=== PATIENT | female | born 1985 | race Hispanic/Latino ===

== ENCOUNTER 2021-10-08 17:12 | Inpatient (IN) | payer SELFPAY ==
[~2021-10-08 17:12] MED LIST: Iopamidol-370 76% 500 ML 1 ML ONE
[2021-10-08] MEDS ORDERED: Ondansetron PF 4 MG/2 ML Vial ONE (17:50)
[2021-10-08] MEDS ORDERED: Morphine 4 MG/ML VIAL ONE (17:52)
[2021-10-08 18:21] LABS: #Monocytes 1.3 thou/uL (0.11-0.59); #Neutrophils 10.1 thou/uL (1.40-6.50); %Basophils 0.3 % (0.0-1.0); %Lymphocytes 7.9 % (21.0-51.0); %Monocytes 10.6 % (0.0-10.0); %Neutrophils 81.2 % (42.0-75.0); Mean Corpuscular HGB CONC 33.5 g/dL (32.0-36.0); Mean Corpuscular Hemoglobin 28.7 pg (27.0-31.0); Mean Corpuscular Volume 85.4 fL (78.0-98.0); Mean Platelet Volume 8.7 fL (7.4-10.4); Platelet Count 147 thou/uL (130-400); RBC Distribution Width 13.7 % (11.5-14.5); Red Blood Cell (RBC) Count 4.54 mill/uL (4.20-5.40); White Blood Cell (WBC) Count 12.4 thou/uL (4.8-10.8)
[2021-10-08 18:30] LABS: BHCG - Serum Negative (NEGATIVE)
[2021-10-08 18:31] LABS: Pregs Control Background? CLEAR/WHITE (CLR/WHITE); Pregs Control Bar Appear? YES (CONTROL BAR)
[2021-10-08 18:45] LABS: ALT (SGPT) 28 U/L (8-55); AST (SGOT) 20 U/L (5-34); Albumin 3.4 g/dL (3.5-5.0); Alkaline Phosphatase 76 U/L (40-110); Anion Gap 12 mmol/L (10-20); BUN (Urea Nitrogen) 8 mg/dL (7.0-18.7); Calc. Creatinine Clearance 0 mL/min (70-130); Calcium 8.4 mg/dL (7.8-10.44); Carbon Dioxide 27 mmol/L (22-29); Chloride 99 mmol/L (98-107); Globulin 3.8 g/dL (2.4-3.5); Glucose 123 mg/dL (70-105); Protein, Total 7.2 g/dL (6.0-8.3); Sodium 135 mmol/L (136-145)
[2021-10-08] MEDS ORDERED: Acetaminophen 500 MG TAB ONE (18:45)
[2021-10-08 19:01] LABS: SARS-CoV-2 NAA Rapid Test Not Detected (NotDetected)
[2021-10-08 19:03] LABS: Potassium 2.7 mmol/L (3.5-5.1)
[2021-10-08] MEDS ORDERED: Ketorolac Tromethamine 30 MG/ML VIAL ONE (19:52)
[2021-10-08] MEDS ORDERED: cefTRIAXone\\ROCEPHIN 2 GM VIAL ONE (19:52)
[2021-10-08] MEDS ORDERED: Potassium Chloride 20 MEQ TAB ONE (19:52)
[2021-10-08 19:57] LABS: Bilirubin Negative (Negative); Blood, Urine 2+ (Negative); Clarity Turbid (Clear); Glucose, Urine (Dipstick) Normal (Negative); Ketone, Urine Negative (Negative); Leukocyte 500 Leu/uL (Negative); Nitrite Negative (Negative); Protein, Urine (Dipstick) 20 mg/dL (Neg-Trace); Specific Gravity, Urine 1.024 (1.002-1.036); Urobilinogen Normal mg/dL (Less than 2); WBC/HPF Greater than 50 HPF (0-3); pH, Urine 6.5 (5.0-9.0)
[2021-10-08 19:58] LABS: Bacteria/HPF 1+ HPF (None Seen)
[2021-10-08 20:03] LABS: Amphetamine Detected (NotDetected); Barbiturates Screen Not Detected (NotDetected); Benzodiazepine Screen Not Detected (NotDetected); Cocaine Metabolite Screen Not Detected (NotDetected); Methadone Not Detected (NotDetected); Methamphetamine Detected (NotDetected); Opiate Screen Detected (NotDetected); Oxycodone Screen Not Detected (NotDetected); Phencyclidine (PCP) Not Detected (NotDetected); THC/Cannabinoid Screen Not Detected (NotDetected); Tricyclic Screen Not Detected (NotDetected)
[2021-10-08 20:39] LABS: Acetaminophen Less than 6.0 mcg/mL (10.0-30.0); Alcohol Less than 10 mg/dL (Less than 10); Salicylate Less than 8.0 mg/dL (15.0-30.0)
[2021-10-08 21:06] LABS: Lactic Acid 0.8 mmol/L (0.5-2.2)
[2021-10-08] MEDS ORDERED: Magnesium 2 GM/50 ML BAG (IN WATER) ONE (22:01)
[2021-10-08 23:01] VITALS: BMI 37.2
[2021-10-08] MEDS ORDERED: Acetaminophen 325 MG TAB PO PRN (23:33)
[2021-10-08] MEDS ORDERED: Ondansetron ODT 4 MG TAB PO PRN (23:37)
[2021-10-08] MEDS ORDERED: Senokot S 8.6-50 MG TAB PO PRN (23:37)
[2021-10-09] MEDS: HYDROcodone/Acetaminophen 7.5/325 mg Tablet PO PRN ×5 (00:09→21:23)
[2021-10-09] MEDS: Ondansetron PF 4 MG/2 ML Vial IVP PRN ×2 (00:09→05:45)
[2021-10-09] MEDS: Sodium Chloride 0.9% 1,000 ML IV SCH ×3 (00:10→16:34)
[2021-10-09] MEDS ORDERED: Electrolyte Replacement Protocol 1 EACH FS PRN (00:30)
[2021-10-09] MEDS ORDERED: Vancomycin HCl 1.25 GM in Sodium Chloride 0.9% 250 ML 250 ML IVPB SCH (01:00)
[2021-10-09] MEDS ORDERED: Vancomycin HCl 1 GM in Sodium Chloride 0.9% 250 ML 250 ML IVPB SCH (02:00)
[2021-10-09] MEDS: Ketorolac Tromethamine 30 MG/ML VIAL IVP SCH ×3 (05:46→17:26)
[2021-10-09 05:55] LABS: #Basophils 0.2 thou/uL (0.0-0.2); #Lymphocytes 0.7 thou/uL (1.20-3.40); #Monocytes 0.9 thou/uL (0.11-0.59); #Neutrophils 8.8 thou/uL (1.40-6.50); %Basophils 1.6 % (0.0-1.0); %Eosinophils 0.2 % (0.0-10.0); %Lymphocytes 6.2 % (21.0-51.0); %Monocytes 8.4 % (0.0-10.0); %Neutrophils 83.5 % (42.0-75.0); Hemoglobin 11.9 g/dL (12.0-16.0); Mean Corpuscular Hemoglobin 28.8 pg (27.0-31.0); Mean Corpuscular Volume 87.3 fL (78.0-98.0); Mean Platelet Volume 8.1 fL (7.4-10.4); Platelet Count 126 thou/uL (130-400); RBC Distribution Width 13.9 % (11.5-14.5); Red Blood Cell (RBC) Count 4.12 mill/uL (4.20-5.40); White Blood Cell (WBC) Count 10.6 thou/uL (4.8-10.8)
[2021-10-09 06:19] LABS: Anion Gap 9 mmol/L (10-20); BUN (Urea Nitrogen) 6 mg/dL (7.0-18.7); Calc. Creatinine Clearance 147 mL/min (70-130); Calcium 7.8 mg/dL (7.8-10.44); Carbon Dioxide 27 mmol/L (22-29); Chloride 104 mmol/L (98-107); Glucose 111 mg/dL (70-105); Magnesium 1.9 mg/dL (1.6-2.6); Phosphorus 1.6 mg/dL (2.3-4.7); Potassium 3.1 mmol/L (3.5-5.1); Sodium 137 mmol/L (136-145)
[2021-10-09] MEDS ORDERED: Potassium Chloride 20 MEQ TAB PO SCH ×2 (06:30→08:00)
[2021-10-09] MEDS ORDERED: Potassium Phosphate 15 MMOL in Sodium Chloride 0.9% 100 ML IVPB SCH (06:30)
[2021-10-09] MEDS ORDERED: Potassium Phosphate 30 MMOL in Sodium Chloride 0.9% 250 ML 250 ML IVPB SCH (08:45)
[2021-10-09] MEDS ORDERED: Potassium Phosphate 30 MMOL in Sodium Chloride 0.9% 500 ML IVPB SCH (09:00)
[2021-10-09] MEDS ORDERED: Vancomycin 1 GM in Premix Bag 1 BAG IVPB SCH (09:00)
[2021-10-09] MEDS ORDERED: FLU VACC QS2021-22(6MOS UP)/PF 60 MCG/0.5 ML SYRINGE IM ONE (09:00)
[2021-10-09] MEDS: Cefepime 2 GM in Sodium Chloride 0.9% 100 ML IVPB SCH ×2 (10:19→21:19)
[2021-10-09] MEDS: Tamsulosin HCl 0.4 MG CAP PO SCH (10:19)
[2021-10-09] MEDS: Enoxaparin Sodium 40 MG/0.4 ML SYRINGE SC SCH (10:19)
[2021-10-09] MEDS: Famotidine 20 MG TAB PO SCH ×2 (10:20→21:23)
[2021-10-09] MEDS: Potassium Chloride 20 MEQ in Premix Bag 1 BAG IVPB SCH (11:31)
[2021-10-10] MEDS: Ketorolac Tromethamine 30 MG/ML VIAL IVP SCH ×3 (00:38→11:20)
[2021-10-10] MEDS: HYDROcodone/Acetaminophen 7.5/325 mg Tablet PO PRN ×3 (01:47→16:11)
[2021-10-10 05:17] LABS: #Lymphocytes 0.7 thou/uL (1.20-3.40); #Monocytes 0.6 thou/uL (0.11-0.59); #Neutrophils 3.1 thou/uL (1.40-6.50); %Basophils 0.9 % (0.0-1.0); %Lymphocytes 16.1 % (21.0-51.0); %Neutrophils 67.9 % (42.0-75.0); Hemoglobin 10.6 g/dL (12.0-16.0); Mean Corpuscular HGB CONC 33.3 g/dL (32.0-36.0); Mean Corpuscular Hemoglobin 29.1 pg (27.0-31.0); Mean Corpuscular Volume 87.4 fL (78.0-98.0); Mean Platelet Volume 8.3 fL (7.4-10.4); Platelet Count 114 thou/uL (130-400); Red Blood Cell (RBC) Count 3.65 mill/uL (4.20-5.40); White Blood Cell (WBC) Count 4.5 thou/uL (4.8-10.8)
[2021-10-10 05:33] LABS: Anion Gap 10 mmol/L (10-20); BUN (Urea Nitrogen) 6 mg/dL (7.0-18.7); Calc. Creatinine Clearance 157 mL/min (70-130); Calcium 8.1 mg/dL (7.8-10.44); Carbon Dioxide 28 mmol/L (22-29); Chloride 103 mmol/L (98-107); Glucose 110 mg/dL (70-105); Sodium 138 mmol/L (136-145)
[2021-10-10 05:38] LABS: Potassium 2.8 mmol/L (3.5-5.1)
[2021-10-10] MEDS: Potassium Chloride 20 MEQ TAB PO SCH ×2 (07:57→09:40)
[2021-10-10] MEDS ORDERED: Potassium Chloride 20 MEQ in Premix Bag 1 BAG IVPB SCH (08:30)
[2021-10-10] MEDS ORDERED: Potassium Chloride 20 MEQ TAB PO SCH (08:30)
[2021-10-10] MEDS: Enoxaparin Sodium 40 MG/0.4 ML SYRINGE SC SCH (09:33)
[2021-10-10] MEDS: Cefepime 2 GM in Sodium Chloride 0.9% 100 ML IVPB SCH (09:33)
[2021-10-10] MEDS: Famotidine 20 MG TAB PO SCH (09:33)
[2021-10-10] MEDS: Tamsulosin HCl 0.4 MG CAP PO SCH (09:34)
[2021-10-10 15:44] VITALS: BP 113/60; TEMP 98.2
== END 2021-10-10 16:38 | disposition home or self-care (01) | DRG 872 ==
LOC: ERS 17:12 → EEVIPCON 17:12 → NEURO 20:59
PROVIDERS: ADMIT Student in an Organized Health Care Education/Training Program; ATTEND Internal Medicine
DX: A41.9 Sepsis, unspecified organism (principal); N10 Acute pyelonephritis; E87.2 Acidosis; Z20.822 Contact with and (suspected) exposure to COVID-19; E66.9 Obesity, unspecified; F19.10 Other psychoactive substance abuse, uncomplicated; R19.7 Diarrhea, unspecified; F15.10 Other stimulant abuse, uncomplicated; Z60.2 Problems related to living alone; R65.20 Severe sepsis without septic shock; F11.10 Opioid abuse, uncomplicated; Z68.37 Body mass index [BMI] 37.0-37.9, adult; Z82.49 Family history of ischemic heart disease and other diseases of the circulatory system; Z83.3 Family history of diabetes mellitus
CPT/HCPCS: 0240U; 36415; 74177; 76770; 80048; 80053; 80306; 80307; 81003; 81015; 83605; 83735; 84100; 84703; 85025; 87040; 87077; 87086; 87186; 93005; J0692; J0696; J1650; J1885; J2270; J2405; J3370; J3475; J3490; J7050; Q9967